=== PATIENT | male | born 1975 | race Caucasian/White ===

== ENCOUNTER 2018-05-04 15:08 | Emergency (ER) | payer SELFPAY ==
[2018-05-04 15:09] VITALS: BP 122/77; PULSE 73; RESP 16; O2SAT 96
[2018-05-04 15:10] VITALS: BP 122/77; PULSE 69; RESP 16; TEMP 36.7; O2SAT 97; BMI 33.7
--- NOTE | 2018-05-04 15:21 | EKG12_ITS ---
Test Reason : PALPS Blood Pressure : / mmHG Vent. Rate : 074 BPM Atrial Rate : 074 BPM P-R Int : 184 ms QRS Dur : 088 ms QT Int : 368 ms P-R-T Axes : 066 026 011 degrees QTc Int : 408 ms Normal sinus rhythm Normal ECG Confirmed by CASSIE DURAND, JOEL ([id number]), material expeditor PATRIA TONY ([id number]) on 05/07/2018 4:37:43 PM Referred By: ED Confirmed By:JOEL MATTHEWS MD
--- NOTE | 2018-05-04 15:21 | CT_ITS ---
STUDY: CT BRAIN WITHOUT CONTRAST REASON FOR EXAM: Male, 43 years old. Altered mental status RADIATION DOSAGE (If Supplied By Facility): CTDIvol = ( 44.99 ) mGy, DLP = ( 829.85 ) mGycm TECHNIQUE: Transaxial CT imaging of the brain was performed without administration of intravenous contrast material. Individualized dose optimization techniques were used for this CT. COMPARISON: None. FINDINGS: No evidence for shift of midline structures, mass effect or compression of ventricles noted. No acute intra-articular extra-axial hemorrhage is seen. No abnormal intracranial fluid collections identified. The basal cisterns are patent. Posterior fossa structures demonstrate no discrete mass. Calvarium is intact. Mucoperiosteal thickening of the maxillary sinuses as well as the sphenoid sinuses and the ethmoid vessels. 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 IMPRESSION: No acute intracranial hemorrhage, mass effect or acute large territory infarcts. Paranasal sinus disease Electronically Signed: Сергей Moe, at 17:15 EST Tel , Service support , CT/Brain/Head without Contrast
--- NOTE | 2018-05-04 15:23 | ED.VISSUMM ---
- ER Visit Summary Date of Service: 05/04/18 Chief Complaint: Anxious, legs feel weak History of Present Illness: The patient is a 43 M who states for the past month he has been having these feelings of anxiousness and legs feeling weak. Got worse today. He states he was making food. He had eaten the food but then had the symptoms come back. Legs are feeling weak and shaky. He had blurred vision. Now his whole body is burning. He states that the burning sensation is now gone but his whole body now hurts. He has no official diagnosis of anxiety. He only takes medications for GERD and stomach problems. Denies any chest pain or shortness of breath. No back pain. Physical Examination: Vital signs reviewed. HEENT exam unremarkable. Heart is regular rate and rhythm without murmurs. Lungs are clear to auscultation. Abdomen is soft and nontender. Extremities reveal no edema. Skin exam normal. Neurologic exam shows 5 out of 5 strength of the arms. 4 out of 5 strength of the legs bilaterally. No slurred speech, facial droop or lateralizing symptoms. Test Results: Laboratory studies normal. EKG normal. CAT scan of the head normal Emergency Department Course and Treatment: I am unclear the etiology of the patient's symptoms. It could be anxiety related. Patient will be discharged to follow-up with his PCP for further testing Treatment Plan: [] Disposition: Discharge Impression: Weakness, anxiety This note was generated with [employer] dictation software. It may contain incorrect words, spelling, and punctuation that were not noted in review of the chart prior to signing ED Disposition - Plan for ED Patient: Chief Complaint: General Illness Referrals: Santhosh Centeno MD [Primary Care Provider] -
[2018-05-04 15:53] LABS: Absolute Lymphocyte Count 1.73 X10^3/ul (0.83-4.51); Absolute Neutrophil Count 3.5 X10^3/uL (2.0-7.7); Basophil# 0.04 X10^3/uL; Basophil% 0.6 % (0-1); Eosinophil# 0.43 X10^3/uL; Eosinophils% 6.6 % (0-5); Hematocrit 43.5 % (40-54); Lymphocyte # 1.73 X10^3/ul (4.0); Lymphocyte % 26.7 % (19-41); Mean Corp Hgb Conc 34.5 g/gl (32-36); Mean Corpuscular Hgb 30.7 pg (27.0-32.0); Mean Platelet Vol. 10.9 fl (6.2-12.0); Monocyte# 0.78 X10^3/uL; Neutrophil % 53.9 % (47-70); POSITIVE COUNT NO; POSITIVE DIFFERENTIAL NO; POSITIVE MORPHOLOGY NO; Platelet Count 154 K/mm3 (150-450); RBC Distribution Width CV 12.6 % (11.6-14.6); RBC Distribution Width SD 40.7 fl (35.1-43.9); Red Blood Count 4.89 M/mm3 (4.6-6.2); White Blood Count 6.5 K/mm3 (4.4-11.0)
[2018-05-04 16:34] LABS: Anion Gap 8 (5-15); BUN 19 mg/dL (7-18); BUN/Creat Ratio 17.4 RATIO (10-20); Calcium,Total 8.7 mg/dL (8.5-10.1); Chloride 107 mmol/L (98-107); Creatinine, Serum 1.09 mg/dL (0.70-1.30); EST Glomerular Filtration Rate 78 mL/min (>60); Est Glom Filt Rate - Afr Amer 95 mL/min (>60); Estimated Creatinine Clearance 108.99 ml/min; Glucose 104 mg/dL (74-106); Potassium 3.7 mmol/L (3.5-5.1); Sodium Level 140 mmol/L (136-145)
--- NOTE | 2018-05-04 17:17 | ED.DEP ---
ED Disposition - Plan for ED Patient: Disposition: Home or Assisted Living Chief Complaint: General Illness Instructions: ED Weakness [facility] Referrals: Santhosh Centeno MD [Primary Care Provider] -
[2018-05-04 17:27] VITALS: BP 143/76; PULSE 71; PULSE 76; RESP 16; RESP 20; O2SAT 96
== END 2018-05-04 17:36 | disposition home or self-care (01) ==
PROVIDERS: Emergency Provider Emergency Medicine; Family Provider Family Medicine; PCP Family Medicine
DX: R53.1 Weakness (principal); F41.9 Anxiety disorder, unspecified; K21.9 Gastro-esophageal reflux disease without esophagitis; Z72.0 Tobacco use
CPT/HCPCS: 70450; 80048; 84484; 85025; 93005; 99285; A4216

== ENCOUNTER 2019-02-07 05:01 | Emergency (ER) | payer OTHER, SELFPAY ==
[2019-02-07 05:03] VITALS: BP 158/85; PULSE 85; RESP 16; TEMP 36; O2SAT 95; BMI 34.4
[2019-02-07] MEDS: dexAMETHasone 10 MG/ML Vial PO.IVFORM (05:22)
[2019-02-07] MEDS: DiphenhydrAMINE 25 MG Capsule PO (05:22)
[2019-02-07] MEDS: Famotidine 20 MG Tablet 40 MG PO (05:22)
--- NOTE | 2019-02-07 05:22 | ED.DCSUM_ITS ---
- ER Visit Summary Date of Service: 02/07/19 Chief Complaint: Sore throat History of Present Illness: The patient is a 43 M who was awoken from sleep today with a sore throat. He states his throat is swollen. He is a smoker. He denies any new exposures other than bed sheets that are different but he notes that they were washed in the usual detergent. No fevers. He is not on any DESIRAE inhibitors. Physical Examination: Afebrile vital signs stable Gen: Well-nourished well-developed Head: Normocephalic atraumatic Eyes: Perrl EOMI ENT: TMs clear no rhinorrhea moist mucous membranes patient's uvula is significantly edematous. There is no stridor. Neck: Supple no lymphadenopathy no JVD nontender CVS: Regular rate rhythm no murmurs normal S1-S2 Respiratory: No distress clear to auscultation bilaterally chest nontender Abdomen: Soft nontender nondistended normal bowel sounds no masses Back: Nontender Extremity: Nontender no edema Skin: Normal color no rash Neuro: alert orientated ?3 CN II-XII intact normal strength sensation Psych: Normal affect normal mood Emergency Department Course and Treatment: Patient received a oral dose of Decadron, Benadryl, Pepcid. I will give a work note. I advised home treatment and he notes understanding. Return if worsening or concerns Impression: 1. Uvulitis This note was generated with [employer] dictation software. It may contain incorrect words, spelling, and punctuation that were not noted in review of the chart prior to signing ED Disposition - Plan for ED Patient: Disposition: Home or Assisted Living Instructions: Uvulitis Referrals: Snathosh Centeno MD [Primary Care Provider] - As Needed Additional Instructions: Benadryl 25 mg every 6 hours for symptoms. Drink plenty of ice cold water today. If difficulty breathing or handling secretions please return. Monitor for swelling of lips tongue or other areas of the face/mouth
[2019-02-07 05:34] VITALS: RESP 17
== END 2019-02-07 05:35 | disposition home or self-care (01) ==
PROVIDERS: Emergency Provider Emergency Medicine; Family Provider Family Medicine; PCP Family Medicine
DX: K12.2 Cellulitis and abscess of mouth (principal); E78.00 Pure hypercholesterolemia, unspecified; Z72.0 Tobacco use
CPT/HCPCS: 99283

== ENCOUNTER 2019-05-13 14:14 | Emergency (ER) | payer OTHER, SELFPAY ==
[2019-05-13 14:15] VITALS: BP 141/78; PULSE 72; RESP 16; TEMP 37.1; O2SAT 97; BMI 34.9
--- NOTE | 2019-05-13 14:32 | RAD_ITS ---
STUDY: X-RAY - LUMBAR SPINE REASON FOR EXAM: Male, 44 years old. LOWER BACK PAIN, FALL SEVERAL DAYS AGO TECHNIQUE: 3 view(s) of the lumbar spine were obtained. COMPARISON: None FINDINGS: Normal lumbar lordosis. There is no substantial scoliosis. There is a normal alignment of the vertebrae. Mild degree of anterior spondylosis at the L2-L3 level. Normal disc space heights. The soft tissue structures are unremarkable. RAD/Lumbar Spine 2 or 3 Views IMPRESSION: Degenerative changes of the spine, as detailed above. Electronically Signed: Baron Tomas, at 15:12 EST , Service support ,
[2019-05-13] MEDS: Ketorolac 60 MG/2 ML Vial IM (14:47)
[2019-05-13] MEDS: morphine 8 MG/ML Syringe IM (14:47)
--- NOTE | 2019-05-13 15:07 | ED.VISSUMM ---
- ER Visit Summary Date of Service: 05/13/19 Chief Complaint: Back pain History of Present Illness: The patient is a [address] Centeno. Patient bonilla 2 days ago he had a near fall down steps. Caught himself. Reports that shortly thereafter he bent to pick something up and had the abrupt onset of low back pain. He describes it as sharp pain is 10 out of 10 with movement or walking. Is 5 out of 10 when he remains still and after ibuprofen. States that it radiates to the right buttock and to the anterior surface of his right leg to the level of his knee. He denies any numbness or weakness. No problems with his bowels or his bladder. No groin numbness. No red flags. Physical Examination: Vitals: Stable. Afebrile. General: A&O x 3. NAD. Cardiovascular exam: Regular rate and rhythm, no murmur, rub or gallop. Respiratory exam: Clear to auscultation bilaterally. No wheezes or stridor. Abdominal exam: Soft, nontender, nondistended, normal bowel sounds. No peritoneal signs. Back: Diffuse moderate tenderness to palpation over the lumbar spine and the paraspinous musculature in the lumbar region. No point tenderness. Negative straight leg bilaterally. 5/5 DF, PF, EHL bilaterally. Decreased in station to light touch in the lateral right thigh in an L4 distribution. He has normal sensation to light touch distally.. Extremity: No clubbing, cyanosis, or edema. Test Results: X-ray shows no acute disease. Emergency Department Course and Treatment: An OARRS report was obtained which was negative. He was given morphine and Toradol here. He is resting comfortably. Treatment Plan: Patient be discharged prescription for naproxen and 10 [place]. Instructed to follow-up Dr. Centeno in 1 week if not improving. Return to the emergency department for any worsening symptoms. Disposition: To home in improved and stable condition. Impression: 1. Low back pain, acute. This note was generated with [employer] dictation software. It may contain incorrect words, spelling, and punctuation that were not noted in review of the chart prior to signing ED Disposition - Plan for ED Patient: Instructions: BACK PAIN w/ SCIATICA Prescriptions: Naproxen [Naprosyn] 500 mg PO BID #14 tablet Hydrocodone Bitart/Apap 5-325 [[place] 5MG-325MG] 1 tablet PO Q4H PRN PRN 2 Days #10 tablet PRN Reason: Pain Prednisone 10 mg PO DAILY #63 tablet Referrals: Santhosh Centeno MD [Primary Care Provider] - 1 Week if not improving
== END 2019-05-13 15:36 | disposition home or self-care (01) ==
PROVIDERS: Emergency Provider Emergency Medicine; PCP Family Medicine
DX: M54.5 Low back pain (principal); W10.9XXA Fall (on) (from) unspecified stairs and steps, initial encounter; F17.210 Nicotine dependence, cigarettes, uncomplicated; Z90.49 Acquired absence of other specified parts of digestive tract
CPT/HCPCS: 72100; 96372; 99282

== ENCOUNTER 2019-08-25 22:16 | Emergency (ER) | payer OTHER, SELFPAY ==
[2019-08-25 22:17] VITALS: BP 152/94; PULSE 87; RESP 21; TEMP 37; O2SAT 97; BMI 35.9
--- NOTE | 2019-08-25 22:21 | EKG12_ITS ---
Test Reason : SOB Blood Pressure : / mmHG Vent. Rate : 081 BPM Atrial Rate : 081 BPM P-R Int : 172 ms QRS Dur : 084 ms QT Int : 356 ms P-R-T Axes : 062 037 041 degrees QTc Int : 413 ms Normal sinus rhythm Normal ECG Confirmed by KELVIN ESPANA ([id number]), dictionary editor LUIS QUEVEDO ([id number]) on 08/28/2019 3:06:44 PM Referred By: YAMLI Confirmed By:KELVIN ESPANA
[2019-08-25 22:33] VITALS: BP 153/87; PULSE 84; RESP 16; TEMP 37; O2SAT 95; O2SAT 96
--- NOTE | 2019-08-25 22:46 | ED.VIS.GEN ---
History of Present Illness Chief Complaint: Shortness of Breath Detail of Chief Complaint: Chest pain, reflux, shortness of breath, sweats Informant: Patient Onset: Weeks - 2 weeks Context: Gradual Onset Timing: Intermittent Current Severity: Mild Maximum Severity: Moderate Narrative: Patient presents with a two-week history of lower chest pain with reflux and shortness of breath. It is intermittent and does not necessarily correlate with change in position or with food. He states he feels very winded with minimal exertion. He denies fever or chills but states he breaks out in sweats. - Past Medical History (1) Hx of cholecystectomy Status: Chronic (2) High cholesterol Status: Chronic Past Medical History - Allergies and Home Meds Allergies/Adverse Reactions: Allergies bee venom protein (honey bee) Allergy (Verified 08/25/19 22:17) Anaphylaxis Primary Care Physician: Santhosh Centeno MD [Primary Care Provider] - Prior records reviewed: Yes Smoking Status: Current every day smoker Review of Systems General: Reports: Sweats. Denies: Chills, Fever Eyes: Denies: Visual changes - bilaterally ENT: Denies: Bilateral ear pain Cardiovascular: Reports: Chest pain Respiratory: Reports: Dyspnea Gastrointestinal: Denies: Nausea, Vomiting Genitourinary: Denies: Dysuria Musculoskeletal: Reports: Back pain. Denies: Extremity Pain Skin: Denies: Rash Neurological: Denies: Headache Hematologic: Denies: Easy bruising, Easy bleeding Allergy: Denies: Uticaria Physical Exam Vital Signs/Narrative: Vital Signs Temp Pulse Resp BP Pulse Ox 08/25/19 22:33 98.6 F 84 16 153/87 H 96 08/25/19 22:17 98.6 F 87 21 H 152/94 H 97 Inital Vital Signs reviewed: Yes General: Well nourished, Well developed Head: Normocephalic ENT: Moist mucous membranes Neck: Supple Cardiovascular: Regular rate, Regular rhythm Respiratory: No distress, CTA bilaterally, Chest tenderness - Reproducible tenderness of the lower sternum. Abdomen: Soft, Nontender, Normal bowel sounds Back: Nontender Extremities: Nontender Skin: Normal color, No rash Neurological: Alert, Oriented x3 Psychological: Normal affect Diagnostic/Tx/Re-eval Impressions Chest X-Ray 08/25/19 23:00 IMPRESSION: Normal x-ray examination of the chest. Electronically Signed: Sean Schumacher MD at 23:27 EDT , Service support , 08/25/19 23:00 Chest 1 View (Portable) [RAD] Stat Laboratory Results 08/25/19 08/25/19 22:50 22:50 WBC 8.0 RBC 4.74 Hgb 14.8 Hct 42.8 MCV 90.3 MCH 31.2 MCHC 34.6 RDW Std Deviation 41.9 RDW Coeff of Aubrey 12.6 Plt Count 183 MPV 11.2 Immature Gran % (Auto) 0.300 Neut % (Auto) 51.8 Lymph % (Auto) 32.2 Treasure % (Auto) 9.1 Eos % (Auto) 6.0 H Baso % (Auto) 0.6 Absolute Neuts (auto) 4.1 Absolute Lymphs (auto) 2.57 Nucleated RBC % 0 Sodium 139 Potassium 4.2 Chloride 109 H Carbon Dioxide 26.0 Anion Gap 4 L BUN 18 Creatinine 1.08 Estim Creat Clear Calc 114.47 Est GFR (MDRD) Af Amer 95 Est GFR (MDRD) Non-Af 78 BUN/Creatinine Ratio 16.7 Glucose 201 H Calcium 9.0 Total Bilirubin 0.50 Direct Bilirubin 0.16 AST 36 ALT 74 H Alkaline Phosphatase 73 Troponin I < 0.015 Total Protein 7.0 Albumin 3.4 Globulin 3.6 Lipase 414 H - EKG Initial EKG Interpretation: Sinus Rhythm - Sinus 81 with no acute ischemia. - Medical Decision Making Patient was given aspirin on arrival here. Laboratory evaluation is unremarkable. Cardiac enzymes are negative. Lipase is at the upper limit of normal. Patient states that since coming to the hospital he has noted more reflux. He will be given a GI cocktail here. Patient states that he is on something [id number] for acid reflux but does not remember the name of it. He will given a prescription for Protonix. Symptoms are not classic for angina, however I do recommend he follow-up with his primary care physician. He was advised to return for worsening symptoms or concerns. ED Disposition - Plan for ED Patient: Disposition: Home or Assisted Living Diagnosis: Atypical chest pain, GERD (gastroesophageal reflux disease) Instructions: ED Chest Pain Atypical Unkn Cause, Gastroesophageal Reflux Disease (GERD) Prescriptions: Pantoprazole Sodium [Protonix] 40 mg PO DAILY #30 tablet Referrals: Santhosh Centeno MD [Primary Care Provider] - 5-7 Days
[2019-08-25] MEDS: Aspirin 81 MG TAB.CHEW 324 MG PO (22:55)
[2019-08-25 22:57] LABS: Absolute Lymphocyte Count 2.57 X10^3/uL (0.83-4.51); Absolute Neutrophil Count 4.1 X10^3/uL (2.0-7.7); Basophil# 0.05 X10^3/uL; Basophil% 0.6 % (0-1); Eosinophil# 0.48 X10^3/uL; Hematocrit 42.8 % (40-54); Hemoglobin 14.8 g/dL (13.0-16.5); Lymphocyte # 2.57 X10^3/ul (4.0); Lymphocyte % 32.2 % (19-41); Mean Corp Hgb Conc 34.6 g/dL (32-36); Mean Corpuscular Hgb 31.2 pg (27.0-32.0); Mean Corpuscular Volume 90.3 fL (80-94); Mean Platelet Vol. 11.2 fl (6.2-12.0); Monocyte# 0.73 X10^3/uL; Monocyte% 9.1 % (0-10); NRBC Flagged by Analyzer 0 % (0-5); Neutrophil # 4.13 X10^3/uL (2.7-7.7); Neutrophil % 51.8 % (47-70); Platelet Count 183 K/mm3 (150-450); RBC Distribution Width CV 12.6 % (11.6-14.6); RBC Distribution Width SD 41.9 fl (35.1-43.9); Red Blood Count 4.74 M/mm3 (4.6-6.2)
--- NOTE | 2019-08-25 23:00 | RAD_ITS ---
STUDY: X-RAY CHEST REASON FOR EXAM: Male, 44 years old. INCREASED SOB, COUGH, AND CHEST DISCOMFORT TECHNIQUE: Single AP portable view of the chest. COMPARISON: Previous study of 03/08/2016 FINDINGS: court recording monitor leads are present. The lungs are clear and expanded. There is no demonstrated pleural abnormality. Normal size heart. Normal mediastinum and shaw. Normal visualized pulmonary arteries. Normal visualized aortic arch and descending thoracic aorta. Normal visualized thoracic spine. Normal visualized ribs, clavicles, and shoulders. There is no demonstrated abnormality of the visualized soft tissue structures of the upper abdomen. RAD/Chest 1 View (Portable) IMPRESSION: Normal x-ray examination of the chest. Electronically Signed: Sean Schumacher MD at 23:27 EDT , Service support ,
[2019-08-25 23:21] VITALS: BP 131/107; PULSE 82; RESP 19; TEMP 36.8; O2SAT 96
[2019-08-25 23:49] LABS: AST(SGOT) 36 U/L (15-37); Alanine Aminotransfer ALT/SGPT 74 U/L (16-61); Albumin, Serum 3.4 g/dL (3.2-5.0); Alkaline Phosphatase 73 U/L (45-117); Anion Gap 4 (5-15); BUN 18 mg/dL (7-18); BUN/Creat Ratio 16.7 RATIO (10-20); Bilirubin, Direct 0.16 mg/dL (0.00-0.30); Chloride 109 mmol/L (98-107); Creatinine, Serum 1.08 mg/dL (0.70-1.30); EST Glomerular Filtration Rate 78 mL/min (>60); Est Glom Filt Rate - Afr Amer 95 mL/min (>60); Estimated Creatinine Clearance 114.47 ml/min; Globulin 3.6 g/dL (2.2-4.2); Glucose 201 mg/dL (74-106); Lipase 414 U/L (73-393); Potassium 4.2 mmol/L (3.5-5.1); Sodium Level 139 mmol/L (136-145)
[2019-08-26] MEDS: Mag Hydrox/Al Hydrox/Simeth 30 ML UDC PO (00:13)
[2019-08-26 00:15] VITALS: BP 124/61; PULSE 86; RESP 17; TEMP 37.1; O2SAT 96
== END 2019-08-26 00:21 | disposition home or self-care (01) ==
LOC: ED 08-26 00:06
PROVIDERS: Emergency Provider Emergency Medicine; PCP Family Medicine
DX: R07.89 Other chest pain (principal); K21.9 Gastro-esophageal reflux disease without esophagitis; E78.00 Pure hypercholesterolemia, unspecified; F17.200 Nicotine dependence, unspecified, uncomplicated; Z90.49 Acquired absence of other specified parts of digestive tract
CPT/HCPCS: 71045; 80048; 80076; 83690; 84484; 85025; 93005; 99285; A4216

== ENCOUNTER → 2019-12-05 17:56 | Outpatient (CLI) | payer OTHER, SELFPAY | PROVIDERS: PCP Family Medicine | DX: Z20.828 Contact with and (suspected) exposure to other viral communicable diseases (principal) | CPT/HCPCS: 87635; 94799; U0003 ==

== ENCOUNTER 2020-02-09 15:02 | Emergency (ER) | payer SELFPAY ==
[2020-02-09 15:06] VITALS: BP 141/80; PULSE 111; RESP 18; TEMP 36.4; O2SAT 97
[2020-02-09 15:30] VITALS: BP 141/80; PULSE 111; RESP 18; TEMP 36.4; O2SAT 97
--- NOTE | 2020-02-09 15:35 | RAD_ITS ---
STUDY: X-RAY CHEST REASON FOR EXAM: Male, 44 years old. C/O H/A, SOB, COUGH, MUSCLES ACHES, LOSS OF TASTE and amp; SMELL TECHNIQUE: Single AP portable view of the chest. COMPARISON: Comparison is made with prior study dated 08/25/2019. FINDINGS: The lungs are clear and expanded. There is no demonstrated pleural abnormality. Normal size heart. Normal mediastinum and shaw. Normal visualized pulmonary arteries. Normal visualized aortic arch and descending thoracic aorta. Normal visualized thoracic spine. Normal visualized ribs, clavicles, and shoulders. There is no demonstrated abnormality of the visualized soft tissue structures of the upper abdomen. RAD/Chest 1 View (Portable) IMPRESSION: Normal x-ray examination of the chest. Electronically Signed: Baron Tomas, at 15:52 EDT , Service support ,
--- NOTE | 2020-02-09 16:07 | ED.VIS.GEN ---
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 He complains of headache shortness of breath cough muscle aches loss of taste and smell. He denies any fever but notes chills. He presents in January 2020 during COVID- pandemic. He denies any diarrhea or vomiting. No rashes. - Past Medical History (1) High cholesterol Status: Chronic (2) Hx of cholecystectomy Status: Chronic Past Medical History - Allergies and Home Meds Allergies/Adverse Reactions: Allergies bee venom protein (honey bee) Allergy (Verified 08/25/19 22:17) Anaphylaxis Primary Care Physician: Santhosh Centeno MD [Primary Care Provider] - Surgical History: cholecystectomy Lives: Spouse/ Significant Other Smoking Status: Current every day smoker Drugs: None Review of Systems General: Reports: Chills, Malaise. Denies: Fever, Sweats Eyes: Denies: Visual changes - bilaterally, Diplopia ENT: Reports: Rhinorrhea, Sore throat Cardiovascular: Denies: Chest pain, Palpitations Respiratory: Reports: Dyspnea, Cough. Denies: Dyspnea on exertion Gastrointestinal: Denies: Abdominal pain, Nausea, Vomiting, Diarrhea, Melena, Hematochezia Genitourinary: Denies: Dysuria, Hematuria, Frequency Musculoskeletal: Reports: Myalgias. Denies: Back pain, Extremity Pain Skin: Denies: Rash, Wounds Neurological: Reports: Headache. Denies: Weakness, Numbness Physical Exam Vital Signs/Narrative: Vital Signs Temp Pulse Resp BP Pulse Ox 02/09/20 15:30 97.6 F L 111 H 18 141/80 H 97 02/09/20 15:06 97.6 F L 111 H 18 141/80 H 97 02/09/20 15:03 97.6 F L 111 H 18 141/80 H 97 Inital Vital Signs reviewed: Yes General: Well nourished, Well developed, No Acute Distress Head: Normocephalic, Atraumatic Eyes: Perrl, EOMI ENT: Moist mucous membranes, No rhinorrhea Neck: Supple, Nontender Cardiovascular: Regular rate, Regular rhythm, No murmurs Respiratory: No distress, CTA bilaterally, Chest nontender Abdomen: Soft, Nontender, Nondistended, Normal bowel sounds Back: Nontender, Normal Inspection Extremities: Nontender, No edema Skin: Normal color, No rash Neurological: Alert, Oriented x3, Cranial nerves II-XII grossly intact, Normal Strength, Normal Sensation Psychological: Normal affect, Normal Mood Diagnostic/Tx/Re-eval - Medical Decision Making Patient clinically appears well. Chest x-ray is negative. Was swabbed for COVID-19. Recommend supportive care with Tylenol Motrin and fluids. Return if worsening or concerns ED Disposition - Plan for ED Patient: Disposition: Home or Assisted Living Diagnosis: Viral syndrome, Suspected COVID-19 virus infection Instructions: ED Viral Syndrome Referrals: Santhosh Centeno MD [Primary Care Provider] - 1 Week if not improving
[2020-02-09 16:16] VITALS: BP 137/69; PULSE 53; RESP 14; O2SAT 98
== END 2020-02-09 16:20 | disposition home or self-care (01) ==
PROVIDERS: Emergency Provider Emergency Medicine; PCP Family Medicine
DX: B34.9 Viral infection, unspecified (principal); F17.200 Nicotine dependence, unspecified, uncomplicated; E78.00 Pure hypercholesterolemia, unspecified; Z90.49 Acquired absence of other specified parts of digestive tract; Z20.828 Contact with and (suspected) exposure to other viral communicable diseases
CPT/HCPCS: 71045; 87635; 99282; U0003

== ENCOUNTER 2021-02-13 19:46 | Emergency (ER) | payer SELFPAY ==
[2021-02-13 19:46] VITALS: BP 139/84; PULSE 86; RESP 18; TEMP 36.9; O2SAT 96; BMI 36.0
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
== END 2021-02-13 22:35 | disposition home or self-care (01) ==
PROVIDERS: Emergency Provider Emergency Medicine; PCP Family Medicine
DX: S39.012A Strain of muscle, fascia and tendon of lower back, initial encounter (principal); F17.210 Nicotine dependence, cigarettes, uncomplicated; E66.9 Obesity, unspecified; V43.62XA Car passenger injured in collision with other type car in traffic accident, initial encounter
CPT/HCPCS: 72100; 99282

== ENCOUNTER 2021-05-08 00:23 | Emergency (ER) | payer SELFPAY ==
[2021-05-08 00:24] VITALS: BP 138/80; PULSE 93; RESP 16; TEMP 37.4; O2SAT 96; BMI 33.7
--- NOTE | 2021-05-08 00:26 | ED.RN ---
DR. HARRIS AT BEDSIDE TO ASSESS. NIH OF 0. PER STEVEN NO STROKE ALERT AT THIS TIME.
[2021-05-08 00:30] LABS: Bedside Glucose 135 mg/dL (70-110)
--- NOTE | 2021-05-08 00:30 | CT_ITS ---
STUDY: CTA NECK WITH CONTRAST REASON FOR EXAM: Male, 46 years old. Posterior headache and dizziness during intercourse RADIATION DOSAGE (If Supplied By Facility): CTDIvol = ( 31.33 ) mGy, DLP = ( 1724.39 ) mGycm TECHNIQUE: CT angiography with multi-detector data acquisition was performed from the aortic arch to the skull base following intravenous administration of IV 100mL Isovue-370. MIP images were reconstructed from the axial data set. Post-processing of the angiographic images was performed, with multiplanar reformation and 3D reconstruction. Individualized dose optimization techniques were used for this CT. COMPARISON: None. FINDINGS: AORTIC ARCH: Normal visualized aortic arch. Normal origins of the brachiocephalic, left common carotid, and left subclavian arteries. RIGHT CAROTID ARTERIES: Normal right common carotid artery (CCA). Normal right common carotid bulb. Normal origin of the right internal carotid (ICA) artery without a hemodynamically significant stenosis. Normal visualized cervical portion of the right internal carotid artery. Normal origin of the right external carotid artery (ECA). LEFT CAROTID ARTERIES: Normal left common carotid artery (CCA). Normal left common carotid bulb. Normal origin of the left internal carotid (ICA) artery without a hemodynamically significant stenosis. Normal visualized cervical portion of the left internal carotid At the vertebral artery confluence, there is a short segment of intraluminal Normal origin of the left external carotid artery (ECA). VERTEBRAL ARTERIES: Normal bilateral vertebral arteries with left-sided dominance. Within the basilar artery just distal to the vertebral artery confluence, there is a short segment intraluminal filling defect. There is an additional short segment intraluminal filling defect in the mid segment of the basilar artery. 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 These findings were conveyed to Dr. HARRIS of the emergency Department at the time of initial review. N.B. : The above Results were Read Back by Jens Dowd MD to Jeannette Harris MD, and understanding confirmed on 05/08/2021 01:11:25 (ET). Electronically Signed: Jens Dowd MD at 1:16 EST Tel , Service support ,
--- NOTE | 2021-05-08 00:31 | EKG12_ITS ---
Test Reason : HEADACHE Blood Pressure : / mmHG Vent. Rate : 093 BPM Atrial Rate : 093 BPM P-R Int : 174 ms QRS Dur : 086 ms QT Int : 350 ms P-R-T Axes : 066 020 013 degrees QTc Int : 435 ms Normal sinus rhythm Normal ECG Confirmed by PIO DURAND, MARLYN ([id number]), senior editor LUIS EMERY ([id number]) on 05/09/2021 10:56:58 AM Referred By: STEVEN Confirmed By:MARLYN SUERO MD
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
[2021-05-08] MEDS: fentaNYL 100 MCG/2 ML Ampul 50 MCG IV (00:55)
[2021-05-08] MEDS: Ondansetron 4 MG/2 ML Vial IV (01:00)
[2021-05-08 01:02] LABS: Absolute Neutrophil Count 4.7 X10^3/uL (2.0-7.7); Basophil# 0.06 X10^3/uL; Basophil% 0.6 % (0-1); Hematocrit 45.1 % (40-54); Hemoglobin 15.6 g/dL (13.0-16.5); Lymphocyte % 38.2 % (19-41); Mean Corp Hgb Conc 34.6 g/dL (32-36); Mean Corpuscular Hgb 30.6 pg (27.0-32.0); Mean Corpuscular Volume 88.6 fL (80-94); Monocyte# 0.86 X10^3/uL; Monocyte% 8.7 % (0-10); NRBC Flagged by Analyzer 0 % (0-5); Neutrophil # 4.69 X10^3/uL (2.7-7.7); Neutrophil % 47.2 % (47-70); Platelet Count 169 K/mm3 (150-450); RBC Distribution Width CV 11.9 % (11.6-14.6); RBC Distribution Width SD 38.5 fl (35.1-43.9); Red Blood Count 5.09 M/mm3 (4.6-6.2); White Blood Count 9.9 K/mm3 (4.4-11.0)
[2021-05-08 01:18] LABS: Anion Gap 6 (5-15); BUN 21 mg/dL (7-18); BUN/Creat Ratio 15.2 RATIO (10-20); CPK Total, Creatine Kinase 202 U/L (39-308); Calcium,Total 9.3 mg/dL (8.5-10.1); Chloride 110 mmol/L (98-107); Creatinine, Serum 1.38 mg/dL (0.70-1.30); EST Glomerular Filtration Rate 59 mL/min (>60); Est Glom Filt Rate - Afr Amer 71 mL/min (>60); Glucose 150 mg/dL (74-106); Potassium 3.9 mmol/L (3.5-5.1); Sodium Level 139 mmol/L (136-145)
[2021-05-08 01:19] VITALS: O2SAT 85
[2021-05-08 01:20] LABS: International Normalized Ratio 0.9; Prothrombin Time (Protime)PT. 11.9 SECONDS (11.7-14.9)
[2021-05-08 01:34] VITALS: BP 142/79; BP 155/80; PULSE 92; PULSE 96; RESP 16; RESP 19; O2SAT 93; O2SAT 96
--- NOTE | 2021-05-08 01:42 | ED.RN ---
[facility] NEUROLOGIST BEAMING INTO ROBOT AT THIS TIME. PER CT SCAN QUESTIONABLE CLOT VS. HEMORRHAGE. PER NEUROLOGIST NO TPA OR BLOOD THINNERS AT THIS TIME. REQUESTED PATIENT BE TRANSFERRED TO [facility] FAMILY REQUESTED THIS RN AND DR. HARRIS TO STEP OUT OF ROOM FOR PRIVACY. PATIENT AND FAMILY HESITANT TO BE TRANSFERRED. REQUESTING TO TALK ABOUT IT WITH EACH OTHER AT THIS TIME. DR. HARRIS EXPLAINED THE IMPORTANCE OF FOLLOWING UP FOR FURTHER EVALUATION. FAMILY STILL REQUESTING SOME TIME TO TALK.
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
[2021-05-08 02:04] VITALS: BP 138/84; PULSE 90; RESP 16; O2SAT 94
--- NOTE | 2021-05-08 02:08 | ED.RN ---
FAMILY AND PATIENT AGREEABLE TO BE TRANSFERRED.
[2021-05-08 02:34] VITALS: BP 137/75; PULSE 87; RESP 16; O2SAT 93
== END 2021-05-08 02:38 | disposition short-term general hospital (02) ==
PROVIDERS: Emergency Provider Emergency Medicine; PCP Family Medicine; Visit Provider Emergency Medicine
DX: I65.1 Occlusion and stenosis of basilar artery (principal); R51.9 Headache, unspecified; F17.210 Nicotine dependence, cigarettes, uncomplicated; Z20.822 Contact with and (suspected) exposure to COVID-19; K21.9 Gastro-esophageal reflux disease without esophagitis; N52.9 Male erectile dysfunction, unspecified
CPT/HCPCS: 70496; 70498; 80048; 82550; 82962; 85025; 85610; 87426; 93005; 96374; 96375; 99285; Q9967; A4216; J2405

== ENCOUNTER 2021-08-06 17:25 | Emergency (ER) | payer SELFPAY ==
[2021-08-06 17:27] VITALS: BP 169/103; PULSE 90; RESP 18; TEMP 36.8; O2SAT 96; BMI 36.6
--- NOTE | 2021-08-06 17:31 | CM.ED ---
RHEA Note RHEA [facility] but patient can not go till tomorrow due to bed availability. Shonna said that they were hoping [facility] had bed but they will not have bed until Sunday. Shonna said that [facility] did not give accepting information yet due to not having bed assignment however, they will provide information in the morning. RHEA updated [facility] La [facility]. Plan: [facility]
[2021-08-06 17:36] VITALS: BMI 36.6
[2021-08-06 17:43] VITALS: BP 161/89; PULSE 80; RESP 19; O2SAT 96
[2021-08-06 18:10] LABS: Bedside Glucose 122 mg/dL (74-106)
--- NOTE | 2021-08-06 18:24 | CT_ITS ---
STUDY: CT BRAIN WITHOUT CONTRAST ENHANCEMENT OF 1847 HOURS ON 08/06/2021 REASON FOR EXAM: 46-year-old male with headache. RADIATION DOSAGE (If Supplied By Facility): CTDIvol = ( 44.99 ) mGy, DLP = ( 863.60 ) mGycm TECHNIQUE: Transaxial CT imaging of the brain was performed without administration of intravenous contrast material. Individualized dose optimization techniques were used for this CT. COMPARISON: 05/08/2021, 05/04/2018. FINDINGS: There are findings of a chronic pansinusitis. Normal calvarium without linear or depressed skull fractures. No subdural, epidural, or intracerebral hematoma, hemorrhage or contusion. No intracranial infarcts or mass lesions. CT/Brain/Head without Contrast IMPRESSION: 1. Findings of chronic pansinusitis. These findings were present to a lesser degree on previous studies. 2. Normal calvarium without linear or depressed skull fractures. 3. No subdural, epidural, or intracerebral hematoma, hemorrhage, or contusion. 4. No intracranial infarcts or mass lesions. 5. No evidence of other intracranial pathology. Electronically Signed: Randy Walls MD at 19:14 EDT ,
[2021-08-06] MEDS: DiphenhydrAMINE 50 MG/ML Syringe 25 MG IV (18:35)
[2021-08-06 18:36] LABS: Absolute Lymphocyte Count 2.24 X10^3/uL (0.83-4.51); Absolute Neutrophil Count 3.7 X10^3/uL (2.0-7.7); Basophil# 0.04 X10^3/uL; Basophil% 0.6 % (0-1); Eosinophil# 0.47 X10^3/uL; Eosinophils% 6.6 % (0-5); Hematocrit 40.8 % (40-54); Hemoglobin 14.6 g/dL (13.0-16.5); Lymphocyte # 2.24 X10^3/ul (0.83-4.51); Lymphocyte % 31.4 % (19-41); Mean Corp Hgb Conc 35.8 g/dL (32-36); Mean Corpuscular Hgb 31.1 pg (27.0-32.0); Monocyte# 0.64 X10^3/uL; NRBC Flagged by Analyzer 0 % (0-5); Neutrophil # 3.73 X10^3/uL (2.7-7.7); Neutrophil % 52.1 % (47-70); Platelet Count 179 K/mm3 (150-450); RBC Distribution Width CV 12.1 % (11.6-14.6); RBC Distribution Width SD 38.5 fl (35.1-43.9); Red Blood Count 4.69 M/mm3 (4.6-6.2); White Blood Count 7.1 K/mm3 (4.4-11.0)
[2021-08-06] MEDS: Metoclopramide 10 MG/2 ML Vial IV (18:36)
[2021-08-06 18:39] VITALS: BP 140/77; PULSE 72; RESP 18; O2SAT 97
[2021-08-06 18:47] LABS: Prothrombin Time (Protime)PT. 12.7 SECONDS (11.7-14.9)
--- NOTE | 2021-08-06 18:47 | EDS_ITS ---
HPI History of Present Illness Chief Complaint: Neuro S/Sx Informant: patient Onset/Context/Timing Onset: Today Context: Sudden Timing: Continuous Location: Occipital, right parietal/temporal/frontal area Worsened by: Nothing Relieved by: Nothing Associated Symptoms/Injury Associated Symptoms: Positive for Visual Changes; Negative for Fever, Nausea, Vomiting, Sore Throat, Sinus Pressure, Numbness, Tingling and Photophobia Injury - JUDD: Negative for Direct Trauma and Fall Narrative Narrative: Presents with headache and black spots in his vision that began again today. Patient states it began rather suddenly. Patient states his headache is sharp. Patient states it started in the occiput and then went to the right parietal and temporal area and then briefly to the frontal area. Patient states that is currently in the occipital area. Patient states it has been constant. Patient states nothing makes it worse and nothing makes it better. Patient states he sees black spots in the lower part of his vision. Patient denies any double vision. Patient denies any fevers or chills. Patient states he had similar symptoms in the past when he was initially diagnosed with intracranial hemorrhage. Patient was transferred to [facility] and had further testing which did not show any intracranial bleeding. Patient has had recent follow-up MRI, MRA, and MRV of his brain which have all been normal. [facility] Medical History Chronic pain Former smoker High cholesterol Pancreatitis Home Medications colestipol [Colestid Tablet] 3 tab PO DAILY 09/21/15 [History Last Taken Unknown] Cholecalciferol (Vitamin D3) [Vitamin D3] 5,000 unit PO DAILY 08/25/19 [History Last Taken Unknown] pantoprazole 40 mg PO DAILY #30 tab 08/26/19 [Rx Last Taken Unknown] etodolac 500 mg PO BID 08/06/21 [History Last Taken Unknown] gabapentin 300 mg PO BID 08/06/21 [History Last Taken Unknown] Allergy/AdvReac Type Severity Reaction Status Date / Time bee venom protein (honey bee) Allergy Anaphylaxis Verified 08/06/21 17:31 Surgical History History of cholecystectomy Hx of cholecystectomy Social History Smoking Status: Current every day smoker tobacco type: cigarettes and smokeless tobacco ROS ROS ED Constitutional Constitutional ED: Denies chills or fever(s) Eyes Eyes: Reports change in vision; Denies diplopia ENT ENT ED: Denies rhinorrhea or sore throat Cardiovascular Cardiovascular: Denies chest pain or palpitations Respiratory/Chest Respiratory/Chest: Denies cough or dyspnea Gastrointestinal Gastrointestinal: Denies nausea or vomiting Genitourinary Genitourinary ED: Denies dysuria or hematuria Musculoskeletal Musculoskeletal: Reports back pain; Denies neck pain Integumentary Denies abscess or rash Neurologic Neurologic: Reports headache(s); Denies weakness Allergic/Immunologic Allergic/Immunologic ED: Denies mouth swelling or urticaria EXAM Physical Exam Const Vital Signs: 08/06/21 17:27 08/06/21 17:43 08/06/21 18:39 Temperature 98.2 F Temperature Source Temporal Pulse Rate 90 80 72 Respiratory Rate 18 19 H 18 Blood Pressure 169/103 H 161/89 H 140/77 H Blood Pressure Mean 125 113 98 Pulse Ox 96 96 97 Oxygen Delivery Method Room Air Room Air Room Air 08/06/21 19:33 08/06/21 20:29 Temperature Temperature Source Pulse Rate 66 63 Respiratory Rate 15 18 Blood Pressure 130/80 H 144/71 H Blood Pressure Mean 96 95 Pulse Ox 94 99 Oxygen Delivery Method Room Air Room Air Positive well nourished, well developed and obese General Appearance ED: well developed and NAD Nutritional Appearance: obese HEENT Reports normocephalic and moist mucous membranes atraumatic Eyes PERRL and EOMs intact bilaterally Eyes Narrative: Funduscopic exam is benign bilaterally. Neck supple and no JVD Resp normal respiratory effort and clear to auscultation bilaterally Cardio regular rate and regular rhythm GI non-tender Palpation: soft Neuro oriented x3, CN's II-XII intact bilaterally and no sensory deficits noted Kami Coma Scale: document GCS findings Spontaneous Obeys Commands Oriented 15 Sensorium / Orientation: awake and alert Speech: speech normal Motor Exam: strength 5/5 throughout Psych mental status grossly normal MDM MDM MDM Narrative Medical decision making narrative: CT scan of the brain was obtained. There is no acute intracranial abnormality. There is chronic pansinusitis. This was interpreted by the radiologist and reviewed by myself. CBC was within normal limits. PT was INR and PTT were within normal limits. Comprehensive metabolic profile was essentially within normal limits. Patient was given Reglan and Benadryl here. Patient is resting comfortably on reevaluation. Patient was advised of his findings. Patient was instructed to follow-up with his neurologist and primary care physician in 5 to 7 days for further evaluation. Patient understood and was agreeable with the plan. All questions were answered. Lab Data Attestation: I reviewed the patient's lab results. Labs: Laboratory Results - last 24 hr 08/06/21 08/06/21 08/06/21 17:40 17:40 17:40 WBC 7.1 RBC 4.69 Hgb 14.6 Hct 40.8 MCV 87.0 MCH 31.1 MCHC 35.8 RDW Std Deviation 38.5 RDW Coeff of Aubrey 12.1 Plt Count 179 MPV 11.0 Immature Gran % (Auto) 0.300 Neut % (Auto) 52.1 Lymph % (Auto) 31.4 [place] % (Auto) 9.0 Eos % (Auto) 6.6 H Baso % (Auto) 0.6 Absolute Neuts (auto) 3.7 Absolute Lymphs (auto) 2.24 Nucleated RBC % 0 PT 12.7 INR 1.0 APTT 28.0 Sodium 141 Potassium 3.8 Chloride 109 H Carbon Dioxide 26.0 Anion Gap 6 BUN 24 H Creatinine 1.05 Estim Creat Clear Calc 112.44 Est GFR (MDRD) Af Amer 97 Est GFR (MDRD) Non-Af 80 BUN/Creatinine Ratio 22.9 H Glucose 139 H Calcium 9.0 Total Bilirubin 0.70 AST 36 ALT 79 H Alkaline Phosphatase 66 Total Protein 7.3 Albumin 3.7 Globulin 3.6 Albumin/Globulin Ratio 1.0 POC Glucose 08/06/21 18:07 WBC RBC Hgb Hct MCV MCH MCHC RDW Std Deviation RDW Coeff of Aubrey Plt Count MPV Immature Gran % (Auto) Neut % (Auto) Lymph % (Auto) [place] % (Auto) Eos % (Auto) Baso % (Auto) Absolute Neuts (auto) Absolute Lymphs (auto) Nucleated RBC % PT INR APTT Sodium Potassium Chloride Carbon Dioxide Anion Gap BUN Creatinine Estim Creat Clear Calc Est GFR (MDRD) Af Amer Est GFR (MDRD) Non-Af BUN/Creatinine Ratio Glucose Calcium Total Bilirubin AST ALT Alkaline Phosphatase Total Protein Albumin Globulin Albumin/Globulin Ratio POC Glucose 122 H Radiography Diagnostic Testing: Clinical Impression(s) from Imaging Studies Brain CT 08/06/21 18:24 IMPRESSION: 1. Findings of chronic pansinusitis. These findings were present to a lesser degree on previous studies. 2. Normal calvarium without linear or depressed skull fractures. 3. No subdural, epidural, or intracerebral hematoma, hemorrhage, or contusion. 4. No intracranial infarcts or mass lesions. 5. No evidence of other intracranial pathology. Electronically Signed: Randy Walls MD at 19:14 EDT , Discharge Plan Triage Chief Complaint: Neuro S/Sx Other Complaint: Headache ED Provider: Cale Almeida Dx/Rx/DC Orders Clinical Impression: Headache Instructions: ED Headache Unspecified Prescriptions: No Action colestipol [Colestid] 1 GM tablet 3 tab PO DAILY RF: 0 Cholecalciferol (Vitamin D3) [Vitamin D3] 5,000 UNIT capsule 5,000 unit PO DAILY RF: 0 pantoprazole 40 MG tablet 40 mg PO DAILY Qty: 30 RF: 0 gabapentin 300 mg capsule 300 mg PO BID RF: 0 etodolac 500 mg tablet 500 mg PO BID RF: 0 Primary Care Provider: Santhosh Centeno Referrals: Santhosh Centeno MD [Primary Care Provider] - 3-5 Days Disposition Disposition: Home, Self Care
[2021-08-06 18:51] LABS: AST(SGOT) 36 U/L (15-37); Alanine Aminotransfer ALT/SGPT 79 U/L (16-61); Albumin, Serum 3.7 g/dL (3.2-5.0); Alkaline Phosphatase 66 U/L (45-117); Anion Gap 6 (5-15); BUN 24 mg/dL (7-18); BUN/Creat Ratio 22.9 RATIO (10-20); Chloride 109 mmol/L (98-107); Creatinine, Serum 1.05 mg/dL (0.70-1.30); EST Glomerular Filtration Rate 80 mL/min (>60); Est Glom Filt Rate - Afr Amer 97 mL/min (>60); Estimated Creatinine Clearance 112.44 ml/min; Globulin 3.6 g/dL (2.2-4.2); Glucose 139 mg/dL (74-106); Potassium 3.8 mmol/L (3.5-5.1); Protein, Total 7.3 g/dL (6.4-8.2); Sodium Level 141 mmol/L (136-145)
[2021-08-06 19:33] VITALS: BP 130/80; PULSE 66; RESP 15; O2SAT 94
[2021-08-06 20:29] VITALS: BP 144/71; PULSE 63; RESP 18; O2SAT 99
[2021-08-06 21:17] VITALS: BP 141/70; PULSE 65; RESP 16; O2SAT 97
== END 2021-08-06 21:21 | disposition home or self-care (01) ==
PROVIDERS: Emergency Provider Emergency Medicine; PCP Family Medicine; Visit Provider Emergency Medicine
DX: R51.9 Headache, unspecified (principal); J32.4 Chronic pansinusitis; F17.220 Nicotine dependence, chewing tobacco, uncomplicated; E78.00 Pure hypercholesterolemia, unspecified; G89.29 Other chronic pain; M54.9 Dorsalgia, unspecified
CPT/HCPCS: 70450; 80053; 82962; 85025; 85610; 85730; 99284; A4216

== ENCOUNTER 2022-02-24 14:10 | Emergency (ER) | payer SELFPAY ==
[2022-02-24 14:11] VITALS: BP 145/85; PULSE 85; RESP 18; TEMP 36.8; O2SAT 97; BMI 33.8
--- NOTE | 2022-02-24 14:27 | CT_ITS ---
STUDY: CT BRAIN WITHOUT CONTRAST REASON FOR EXAM: Male, 46 years old. Fall RADIATION DOSAGE (If Supplied By Facility): CTDIvol = ( 25.92 ) mGy, DLP = ( 607.77 ) mGycm TECHNIQUE: Transaxial CT imaging of the brain was performed without administration of intravenous contrast material. Individualized dose optimization techniques were used for this CT. COMPARISON: Comparison is made with prior study dated 08/06/2021. FINDINGS: Normal soft tissue structures. Normal calvarium. Normal size ventricles and extra-axial spaces for the patient''s age. Normal white matter tracts of the cerebral hemispheres. Normal basal ganglia and thalami. Normal brainstem. Normal cerebellum. There is no intracranial hemorrhage. There are no findings of an acute ischemic infarction. Mucosal thickening of the sphenoid sinus and partial opacification of the ethmoid sinuses bilaterally. CT/Brain/Head without Contrast IMPRESSION: Normal unenhanced CT scan of the brain. Sinusitis. Electronically Signed: Baron Tomas MD at 15:31 EDT ,
--- NOTE | 2022-02-24 14:27 | CT_ITS ---
STUDY: CT CERVICAL SPINE WITHOUT CONTRAST REASON FOR EXAM: Male, 46 years old. Fall RADIATION DOSAGE (If Supplied By Facility): CTDIvol = ( 25.92 ) mGy, DLP = ( 607.77 ) mGycm TECHNIQUE: High resolution transaxial imaging was performed without contrast material. Sagittal and coronal images were reconstructed. Individualized dose optimization techniques were used for this CT. COMPARISON: None FINDINGS: Normal craniovertebral junction. Normal anterior atlantoaxial articulation. Normal odontoid process. Normal cervical lordosis. Normal vertebral bodies and posterior osseous elements. Partial opacification of the right sphenoid sinus. C2-3: Normal endplates. Normal disc height and morphology. Normal central canal and intervertebral neuroforamina. C3-4: Normal endplates. Normal disc height and morphology. Normal central canal and intervertebral neuroforamina. C4-5: Normal endplates. Normal disc height and morphology. Normal central canal and intervertebral neuroforamina. C5-6: Normal endplates. Normal disc height and morphology. Normal central canal and intervertebral neuroforamina. C6-7: Normal endplates. Normal disc height and morphology. Normal central canal and intervertebral neuroforamina. C7-T1: Normal endplates. Normal disc height and morphology. Normal central canal and intervertebral neuroforamina. Normal visualized soft tissue structures. CT/Spine Cervical without Contras IMPRESSION: Normal unenhanced CT examination of the cervical spine. Electronically Signed: Baron Tomas MD at 15:30 EDT ,
--- NOTE | 2022-02-24 14:28 | EX.ED.GENINJ ---
HPI History of Present Illness Chief Complaint: Fall Detail of Chief Complaint: Fall with injury to head, neck, and back Informant: patient and spouse/S.O. Narrative Narrative: Patient presents the emergency department after sustaining a fall of the back of the semi-. Patient states that he was trying to avoid being stung by a bee when he fell backwards out of the back of the semi and struck his head on a parked vehicle hitting the side quarter panel. Apparently there was a large dent in the side of the car. Patient denies loss of consciousness. He did not get up after the fall and his called the EMS. Patient complains of pain in his head and neck. Patient complains of pain in his low back. He denies weakness of the extremities. He denies chest pain or abdominal pain. Patient not on blood thinners. [facility] Medical History Chronic pain Former smoker High cholesterol Pancreatitis Home Medications colestipol 1 gram tablet (Colestid) 3 tab PO DAILY 09/21/15 [History Last Taken Unknown] Cholecalciferol (Vitamin D3) [Vitamin D3] 5,000 unit PO DAILY 08/25/19 [History Last Taken Unknown] pantoprazole 40 mg tablet,delayed release 40 mg PO DAILY #30 tabs 08/26/19 [Rx Last Taken Unknown] etodolac 500 mg tablet 500 mg PO BID 08/06/21 [History Last Taken Unknown] gabapentin 300 mg capsule 300 mg PO BID 08/06/21 [History Last Taken Unknown] cyclobenzaprine 10 mg tablet 10 mg PO TID PRN Muscle Spasm #20 TABLETS 02/24/22 [Rx Last Taken Unknown] hydrocodone-acetaminophen 5-325mg 5mg-325mg 1 tab PO Q4H PRN PRN Pain 2 days #10 TABLETS 02/24/22 [Rx Last Taken Unknown] naproxen 500 mg tablet 500 mg PO BID #14 tabs 02/24/22 [Rx Last Taken Unknown] Allergy/AdvReac Type Severity Reaction Status Date / Time bee venom protein (honey bee) Allergy Anaphylaxis Verified 08/06/21 17:31 Surgical History History of cholecystectomy Hx of cholecystectomy Social History Smoking Status: Current every day smoker tobacco type: cigarettes and smokeless tobacco ROS ROS ED Review of Systems ROS Unobtainable: other Constitutional Constitutional ED: Reports lethargy; Denies chills, fever(s), sweats or weight loss Eyes Eyes: Denies blurry vision, change in vision or diplopia ENT ENT ED: Denies rhinorrhea or sore throat Cardiovascular Cardiovascular: Denies chest pain, orthopnea or racing heartbeat Respiratory/Chest Respiratory/Chest: Denies cough, dyspnea, dyspnea on exertion, orthopnea or sputum Gastrointestinal Gastrointestinal: Denies abdominal pain, diarrhea, nausea or vomiting Genitourinary Genitourinary ED: Denies dysuria, hematuria or urinary frequency Musculoskeletal Musculoskeletal: Reports back pain and neck pain; Denies arthralgias or myalgias Integumentary Denies abscess, Abrasions or rash Neurologic Neurologic: Reports headache(s); Denies weakness Psychiatric Psychiatric: Denies anxiety, depression or suicidal thoughts Endocrine Endocrinology: Denies polydipsia, polyphagia or polyuria Hematologic/Lymphatic Hematologic/Lymphatic: Denies easy bleeding, easy bruising or lymphadenopathy Allergic/Immunologic Allergic/Immunologic ED: Denies mouth swelling, tongue swelling or urticaria EXAM Physical Exam Narrative Exam Narrative: Patient presents via EMS backboarded and c-collar. Const Vital Signs: 02/24/22 14:11 02/24/22 14:16 Temperature 98.2 F Temperature Source Oral Pulse Rate 85 Respiratory Rate 18 Respiratory Effort Normal Respiratory Depth Normal Respiratory Pattern Normal Blood Pressure 145/85 H Blood Pressure Mean 105 Pulse Ox 97 Oxygen Delivery Method Room Air Room Air Positive well nourished and well developed General Appearance ED: well developed and NAD HEENT Reports TM's clear and moist mucous membranes normocephalic and atraumatic; Negative for trauma or tenderness Tympanic Membrane ED: Yes TM's clear Eyes PERRL and EOMs intact bilaterally General Eye ED: Negative for pale conjunctiva or scleral icterus Neck no lymphadenopathy, supple and no JVD Neck Narrative: Patient diffusely with tenderness over the C-spine. No bony step-offs noted no crepitus. General: tenderness Chest Wall inspection of chest normal and palpation of chest normal Chest: Negative for tenderness Resp normal respiratory effort and clear to auscultation bilaterally Effort and Inspection: Negative for respiratory distress or pain with movement Auscultation: Negative for rhonchi, wheezes or diminished lung sounds Cardio regular rate, regular rhythm, S1 normal heart sound, S2 normal heart sound and no murmurs Peripheral Pulses: pulses 2+ throughout GI normal to inspection, nondistended, normoactive bowel sounds, soft to palpation, non-tender, non-distended and no masses Back/Spine no CVA tenderness Back/Spine Narrative: Patient was seen diffuse tenderness over lumbar spine. No bony step-offs noted. Negative straight leg raises. Extremity Extremity Narrative: Abrasions noted to the left forearm without bony tenderness on exam. General Extremety ED: Negative for edema General Extremity: Negative for edema Neuro oriented x3, CN's II-XII intact bilaterally, no sensory deficits noted and gait normal Sensorium / Orientation: awake, alert, oriented to person, oriented to place and oriented to time Motor Exam: strength 5/5 throughout and strength abnormal Psych mental status grossly normal Skin no rashes or lesions noted and no wounds MDM MDM MDM Narrative Medical decision making narrative: Patient was left on backboard and c-collar was left in place. CT scan of the brain on my interpretation looks normal official report from radiology pending. I evaluated CT scan of the C-spine and on my interpretation looks normal official report from radiology pending. Patient will be taken off the backboard for comfort and c-collar will be left in place. X-rays of his lumbar spine and pelvis obtained interpreted by myself no acute fractures. Patient was given 4 mg of morphine and 4 mg of Zofran IM. Patient will be discharged to home with a prescription for Naprosyn, Flexeril, few [place] for pain. Lab Data Labs: Laboratory Results - last 24 hr 02/24/22 14:47 POC Glucose 170 H Radiography Diagnostic Testing: Clinical Impression(s) from Imaging Studies Pelvis X-Ray 02/24/22 14:50 IMPRESSION: Normal x-ray examination of the pelvis. Electronically Signed: Baron Tomas MD at 15:10 EDT , Three-view x-rays lumbar spine obtained interpreted by myself no acute fractures. Radiology was in agreement. 1 view x-ray of the pelvis obtained interpreted by myself no acute fractures. Radiology in agreement. Discharge Plan Triage Chief Complaint: Fall ED Provider: Pranav Blackwell Dx/Rx/DC Orders Clinical Impression: Closed head injury, Concussion, Back contusion, Cervical strain Instructions: ED Concussion, ED Back Contusion, ED Neck Sprain or Strain Prescriptions: New cyclobenzaprine [cyclobenzaprine] 10 mg tablet 10 mg PO TID PRN (Reason: Muscle Spasm) Qty: 20 0RF hydrocodone-acetaminophen [hydrocodone-acetaminophen] 5-325 mg tablet 1 tab PO Q4H PRN PRN (Reason: Pain) 2 Days Qty: 10 0RF naproxen 500 mg tablet 500 mg PO BID Qty: 14 0RF No Action colestipol [Colestid] 1 GM tablet 3 tab PO DAILY Cholecalciferol (Vitamin D3) [Vitamin D3] 5,000 UNIT capsule 5,000 unit PO DAILY pantoprazole 40 MG tablet 40 mg PO DAILY Qty: 30 0RF gabapentin 300 mg capsule 300 mg PO BID Label Comments: TAKE 1 CAPSULE BY MOUTH TWICE DAILY etodolac 500 mg tablet 500 mg PO BID Label Comments: TAKE 1 TABLET BY MOUTH TWICE DAILY Primary Care Provider: Santhosh Centeno Referrals: Santhosh Centeno MD [Primary Care Provider] - 3-5 Days Disposition Disposition: Home, Self Care
[2022-02-24] MEDS: Ondansetron 4 MG/2 ML Vial IM (14:40)
[2022-02-24] MEDS: Morphine 4 MG/ML Syringe IM (14:40)
--- NOTE | 2022-02-24 14:50 | RAD_ITS ---
STUDY: X-RAY - PELVIS REASON FOR EXAM: Male, 46 years old. History of fall. TECHNIQUE: One view of the pelvis was obtained. COMPARISON: None. FINDINGS: There is a non-specific bowel gas pattern. There is a 1.7 cm oblong opacity in the right hemipelvis. This most like represents an ingested pill. Normal bilateral iliac wings, sacroiliac joints and visualized sacrum. Normal visualized bilateral superior and inferior pubic rami. Normal pubic symphysis. Normal ischial tuberosities. Normal visualized right femoral head. Normal right acetabulum. Normal right hip joint. Normal visualized left femoral head. Normal left acetabulum. Normal left hip joint. RAD/Pelvis 1 or 2 Views IMPRESSION: Normal x-ray examination of the pelvis. Electronically Signed: Baron Tomas MD at 15:10 EDT ,
--- NOTE | 2022-02-24 14:50 | RAD_ITS ---
STUDY: X-RAY - LUMBAR SPINE REASON FOR EXAM: Male, 46 years old. Pain following a fall. TECHNIQUE: 3 view(s) of the lumbar spine were obtained. COMPARISON: Comparison is made with prior examination dated 02/13/2001. FINDINGS: Normal lumbar lordosis. There is no substantial scoliosis. There is a normal alignment of the vertebrae. Spondylolysis at the L2-L3 and L4-L5 levels. Mild degree of disc space narrowing at the L4-L5 level. The soft tissue structures are unremarkable. RAD/Lumbar Spine 2 or 3 Views IMPRESSION: Degenerative changes of the spine, as detailed above. Electronically Signed: Baron Tomas MD at 15:14 EDT ,
[2022-02-24 15:06] LABS: Bedside Glucose 170 mg/dL (74-106)
[2022-02-24 15:31] VITALS: BP 145/78; PULSE 86; RESP 16; O2SAT 97
--- NOTE | 2022-02-24 16:21 | ED.RN ---
wheelchair at dc
== END 2022-02-24 16:21 | disposition home or self-care (01) ==
PROVIDERS: Emergency Provider Emergency Medicine; PCP Family Medicine; Visit Provider Emergency Medicine
DX: S06.0X0A Concussion without loss of consciousness, initial encounter (principal); S16.1XXA Strain of muscle, fascia and tendon at neck level, initial encounter; S20.229A Contusion of unspecified back wall of thorax, initial encounter; W19.XXXA Unspecified fall, initial encounter; E78.00 Pure hypercholesterolemia, unspecified; Z87.891 Personal history of nicotine dependence; Z90.49 Acquired absence of other specified parts of digestive tract
CPT/HCPCS: 70450; 72100; 72125; 72170; 82962; 99283; J2405

== ENCOUNTER 2022-07-16 17:40 | Emergency (ER) | payer SELFPAY ==
[2022-07-16 17:41] VITALS: BP 131/85; PULSE 85; RESP 14; TEMP 36.8; O2SAT 97; BMI 33.7
--- NOTE | 2022-07-16 17:55 | EX.ED.DYSGE1 ---
HPI History of Present Illness Chief Complaint: Wound Informant: patient Narrative Narrative: ItsPatient states he has developed a scrotal abscess that started spontaneously yesterday and has gotten worse today. 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 He states he had an orchidopexy remotely for testicular torsion, and developed some cysts at the surgical site in the past, at the skin level, and this has occurred where those used to occur. He is a borderline diabetic, states his blood sugar was last checked couple days ago and it was 179 according to the . He denies any fevers, chills, systemic symptoms. [facility] Medical History Chronic pain Former smoker High cholesterol Pancreatitis Home Medications colestipol 1 gram tablet (Colestid) 3 tab PO DAILY 09/21/15 [History Last Taken Unknown] Cholecalciferol (Vitamin D3) [Vitamin D3] 5,000 unit PO DAILY 08/25/19 [History Last Taken Unknown] pantoprazole 40 mg tablet,delayed release 40 mg PO DAILY #30 tabs 08/26/19 [Rx Last Taken Unknown] etodolac 500 mg tablet 500 mg PO BID 08/06/21 [History Last Taken Unknown] gabapentin 300 mg capsule 300 mg PO BID 08/06/21 [History Last Taken Unknown] cyclobenzaprine 10 mg tablet 10 mg PO TID PRN Muscle Spasm #20 TABLETS 02/24/22 [Rx Last Taken Unknown] hydrocodone-acetaminophen 5-325mg 5mg-325mg 1 tab PO Q4H PRN PRN Pain 2 days #10 TABLETS 02/24/22 [Rx Last Taken Unknown] naproxen 500 mg tablet 500 mg PO BID #14 tabs 02/24/22 [Rx Last Taken Unknown] Allergy/AdvReac Type Severity Reaction Status Date / Time bee venom protein (honey bee) Allergy Anaphylaxis Verified 07/16/22 17:41 Surgical History History of cholecystectomy Hx of cholecystectomy Social History Smoking Status: Current every day smoker tobacco type: cigarettes and smokeless tobacco ROS ROS ED Constitutional Constitutional ED: Denies chills, fever(s) or malaise Genitourinary Genitourinary ED: Reports as per HPI; Denies dysuria or flank pain Integumentary Reports as per HPI and abscess EXAM Physical Exam Const Vital Signs: 07/16/22 17:41 Temperature 98.2 F Temperature Source Temporal Pulse Rate 85 Respiratory Rate 14 Blood Pressure 131/85 H Blood Pressure Mean 100 Pulse Ox 97 Oxygen Delivery Method Room Air Positive well nourished and well developed General Appearance ED: well developed and NAD Narrative: 2 cm pointing skin abscess on the right scrotum. Tender, local erythema, locally indurated. No spontaneous drainage. MDM MDM MDM Narrative Medical decision making narrative: For small abscess that was drained see the procedure note. I do not think this needs antibiotics. Advise warm soapy soaks when he gets home, and change dressings frequently, return if worse. Patient does not have a history of MRSA. Procedures Other Procedures Procedure(s): Simple incision and drainage scrotal abscess: Locally prepped with Betadine swab, then incised with a #11 blade superficially after using local freeze spray for anesthesia. Expressed significant amount of purulent discharge, deloculated bluntly, dressed with bacitracin. Tolerated well no complications. Discharge Plan Triage Chief Complaint: Wound ED Provider: Olvin Moreira Dx/Rx/DC Orders Clinical Impression: Abscess of scrotal wall Instructions: ED Abscess Incision And Drainage Prescriptions: No Action colestipol [Colestid] 1 GM tablet 3 tab PO DAILY Cholecalciferol (Vitamin D3) [Vitamin D3] 5,000 UNIT capsule 5,000 unit PO DAILY pantoprazole 40 MG tablet 40 mg PO DAILY Qty: 30 0RF gabapentin 300 mg capsule 300 mg PO BID Label Comments: TAKE 1 CAPSULE BY MOUTH TWICE DAILY etodolac 500 mg tablet 500 mg PO BID Label Comments: TAKE 1 TABLET BY MOUTH TWICE DAILY cyclobenzaprine [cyclobenzaprine] 10 mg tablet 10 mg PO TID PRN (Reason: Muscle Spasm) Qty: 20 0RF hydrocodone-acetaminophen [hydrocodone-acetaminophen] 5-325 mg tablet 1 tab PO Q4H PRN PRN (Reason: Pain) 2 Days Qty: 10 0RF naproxen 500 mg tablet 500 mg PO BID Qty: 14 0RF Primary Care Provider: Santhosh Centeno: Santhosh Centeno MD [Primary Care Provider] - As Needed (Or ER if recurrent/worse) Disposition Disposition: Home, Self Care
[2022-07-16 18:40] VITALS: BP 138/61; PULSE 84; RESP 16; TEMP 36.6; O2SAT 99
== END 2022-07-16 18:52 | disposition home or self-care (01) ==
PROVIDERS: Emergency Provider Emergency Medicine; PCP Family Medicine; Visit Provider Emergency Medicine
DX: N49.2 Inflammatory disorders of scrotum (principal); E78.00 Pure hypercholesterolemia, unspecified; R73.03 Prediabetes; G89.29 Other chronic pain; Z79.899 Other long term (current) drug therapy; F17.210 Nicotine dependence, cigarettes, uncomplicated
CPT/HCPCS: 55100; 99282

== ENCOUNTER 2024-04-28 04:28 | Emergency (ER) | payer SELFPAY ==
[2024-04-28] VITALS (8 sets, daily range): BP systolic 151–155; BP diastolic 67–98; PULSE 87–97; RESP 16–24; TEMP 36.7–36.9; O2SAT 90–96; BMI 34.0
--- NOTE | 2024-04-28 04:57 | CT_ITS ---
INDICATION: ? Pneumonia EXAMINATION: CT CHEST WITHOUT CONTRAST - CT Chest W/O Contrast Injection TECHNIQUE: Helically acquired images were obtained of the chest. The protocol utilizes one or more of the following dose reduction techniques: automated exposure control, adjustment of mA and/or kV according to patient size,and/or use of iterative reconstruction technique. IV Contrast dosage and agent: None. RADIATION DOSAGE (If Supplied By Facility): CTDIvol = ( 19.71 ) mGy, DLP = ( 837.23 ) mGycm COMPARISON: No relevant prior comparison study available FINDINGS: LUNGS, PLEURA AND LARGE AIRWAYS: The central airways are patent. Right lower lobe consolidation with air bronchograms. Tree-in-bud nodular opacities of the left lower lobe posteriorly. No pleural effusion or thickening. No pneumothorax. THYROID: No thyroid lesions. HEART AND PERICARDIUM: Heart size is normal. No pericardial effusion. CORONARY ARTERIES: Coronary artery calcification is not seen. VESSELS: Thoracic aorta is not dilated. MEDIASTINUM AND PAULINA: No mediastinal or hilar adenopathy. Esophagus is unremarkable. No hiatal hernia. UPPER ABDOMEN: No acute pathology. BONES: No suspicious lytic or blastic abnormality. CT/Chest without Contrast IMPRESSION: Right lower lobe consolidation favoring pneumonia. Follow-up to resolution. [employer] RECOMMENDATIONS FOR FOLLOW-UP OF SMALL SOLID LUNG NODULES DETECTED INCIDENTALLY ON CT (for PATIENTS ? 35 YEARS OF AGE with no known extra-pulmonary cancer and no clinical evidence of infection). Electronically Signed: Ramses Cabrera MD at 6:15 EST ,
[2024-04-28] MEDS: Albuterol 2.5 MG/3 ML VIAL.NEB. INHALATION (05:05)
[2024-04-28] MEDS: Ipratropium/Albuterol Sulfate 3 ML AMPUL.NEB INHALATION ×2 (05:05→06:10)
[2024-04-28] MEDS: 0.9% Normal Saline (1000mL) 1,000 ML 999 ML IV (05:15)
[2024-04-28] MEDS: MethylPREDNISolone 125 MG/2 ML Vial IV (05:15)
[2024-04-28] MEDS: guaiFENesin/Codeine 5 ML UDC 10 ML PO (05:24)
[2024-04-28 05:25] LABS: Absolute Lymphocyte Count 1.54 X10^3/uL (0.83-4.51); Absolute Neutrophil Count 5.1 X10^3/uL (2.0-7.7); Basophil# 0.07 X10^3/uL; Basophil% 0.9 % (0-1); Eosinophil# 0.28 X10^3/uL; Eosinophils% 3.5 % (0-5); Hematocrit 39.8 % (40-54); Hemoglobin 13.9 g/dL (13.0-16.5); Lymphocyte # 1.54 X10^3/ul (0.83-4.51); Lymphocyte % 19.3 % (19-41); Mean Corp Hgb Conc 34.9 g/dL (32-36); Mean Corpuscular Volume 85.8 fL (80-94); Mean Platelet Vol. 10.2 fl (6.2-12.0); Monocyte# 1.01 X10^3/uL; Monocyte% 12.6 % (0-10); NRBC Flagged by Analyzer 0 % (0-5); Neutrophil # 5.07 X10^3/uL (2.7-7.7); Neutrophil % 63.3 % (47-70); Platelet Count 217 K/mm3 (150-450); RBC Distribution Width SD 37.3 fl (35.1-43.9); Red Blood Count 4.64 M/mm3 (4.6-6.2)
[2024-04-28 05:39] LABS: Anion Gap 5 (5-15); BUN 13 mg/dL (7-18); BUN/Creat Ratio 11.7 RATIO (10-20); Calcium,Total 9.3 mg/dL (8.5-10.1); Chloride 108 mmol/L (98-107); Creatinine, Serum 1.11 mg/dL (0.70-1.30); EST Glomerular Filtration Rate 75 mL/min (>60); Est Glom Filt Rate - Afr Amer 90 mL/min (>60); Estimated Creatinine Clearance 122.03 ml/min; Glucose 175 mg/dL (74-106); Magnesium 1.9 mg/dL (1.6-2.6); Potassium 3.7 mmol/L (3.5-5.1); Sodium Level 138 mmol/L (136-145)
[2024-04-28] MEDS: Benzonatate 100 MG Capsule 200 MG PO (06:58)
--- NOTE | 2024-04-28 07:02 | EDS_ITS ---
HPI History of Present Illness Chief Complaint: Cough Informant: patient and spouse/S.O. Narrative Narrative: Patient is a 49-year-old male with past medical history of smoking who states he smoked roughly a pack a day for 30 or so years and now transition to vaping in order to quit smoking. He denies any known history of COPD or emphysema. He states he has had congestion drainage and cough for about 5 to 7 days. He was seen at the urgent care recently and had a negative strep influenza RSV and COVID test. He also reports his chest x-ray did not reveal any sign of pneumonia. Despite the negative workup he feels like his symptoms are worsening and therefore he comes in for evaluation [facility] Medical History Chronic pain Former smoker Pancreatitis High cholesterol Home Medications ?Medication ?Instructions ?Recorded ?Last Taken ?Type etodolac 500 mg tablet 500 mg PO BID 08/06/21 Unknown History cholestyramine (with sugar) 4 gram ea PO DAILY 04/28/24 Unknown History oral powder doxycycline monohydrate 100 mg 100 mg PO BID #20 CAPSULES 04/28/24 Unknown Rx capsule famotidine 20 mg tablet 40 mg PO DAILY 04/28/24 Unknown History prednisone 20 mg tablet 40 mg (2 x 20 mg) PO DAILY 7 days 04/28/24 Unknown Rx #14 tabs Allergy/AdvReac Type Severity Reaction Status Date / Time bee venom protein (honey bee) Allergy Anaphylaxis Verified 07/16/22 17:41 Surgical History History of cholecystectomy Hx of cholecystectomy Social History Smoking Status: Former smoker ROS ROS ED Constitutional Constitutional ED: Reports chills, fever(s) and subjective Eyes Eyes: Denies change in vision ENT ENT ED: Reports rhinorrhea and sore throat Cardiovascular Cardiovascular: Denies chest pain Respiratory/Chest Respiratory/Chest: Reports cough and dyspnea Gastrointestinal Gastrointestinal: Denies abdominal pain, diarrhea, nausea or vomiting Genitourinary Genitourinary ED: Denies dysuria Musculoskeletal Musculoskeletal: Reports myalgias Integumentary Denies rash Neurologic Neurologic: Reports headache(s) Hematologic/Lymphatic Hematologic/Lymphatic: Denies easy bleeding or easy bruising Allergic/Immunologic Allergic/Immunologic ED: Denies mouth swelling or tongue swelling EXAM Physical Exam Const Vital Signs: 04/28/24 04:28 04/28/24 04:28 04/28/24 04:33 Temperature 98.5 F 98.5 F Temperature Source Oral Oral Pulse Rate 97 91 94 Respiratory Rate 20 H 18 21 H Respiratory Effort Respiratory Depth Respiratory Pattern Blood Pressure 151/98 H 151/98 H Blood Pressure Mean 115 115 Pulse Ox 93 93 96 Oxygen Delivery Method Room Air Room Air Room Air 04/28/24 04:43 04/28/24 05:05 04/28/24 06:10 Temperature Temperature Source Pulse Rate 87 89 Respiratory Rate 16 20 H Respiratory Effort Short of Breath Respiratory Depth Normal Respiratory Pattern Normal Blood Pressure Blood Pressure Mean Pulse Ox Oxygen Delivery Method Room Air 04/28/24 06:28 04/28/24 06:59 Temperature 98.0 F Temperature Source Pulse Rate 95 94 Respiratory Rate 24 H 18 Respiratory Effort Respiratory Depth Respiratory Pattern Blood Pressure 155/67 H 155/67 H Blood Pressure Mean 96 96 Pulse Ox 92 90 Oxygen Delivery Method Room Air Positive well nourished, well developed and obese General Appearance ED: well developed; Negative for pallor Nutritional Appearance: obese HEENT HEENT Narrative: No tongue or lip swelling no oral lesions no airway edema or compromise There is cobblestoning noted in the posterior pharynx without secondary findings to suggest infection Eyes PERRL and EOMs intact bilaterally General Eye ED: Negative for scleral icterus Neck supple and no JVD Neck Narrative: No nuchal rigidity or meningeal signs Chest Wall palpation of chest normal Chest Narrative: No bony deformity crepitance or subcutaneous emphysema noted Resp Resp Narrative: Breath sounds are diminished throughout with diffuse inspiratory and expiratory wheezing with rhonchi noted in the right lower lobe Mild tachypnea is noted without retractions stridor or accessory muscle use Cardio regular rate and regular rhythm GI normal to inspection, nondistended, normoactive bowel sounds, non-tender, non- distended and no masses Auscultation: normoactive bowel sounds Palpation: soft Extremity normal to inspection Extremity Narrative: No asymmetric edema no pitting edema negative Homans' sign bilaterally Neuro oriented x3, CN's II-XII intact bilaterally and no sensory deficits noted Sensorium / Orientation: alert Motor Exam: strength 5/5 throughout Psych mental status grossly normal Skin no rashes or lesions noted General Skin Exam: Negative for jaundice or pallor MDM MDM MDM Narrative Medical decision making narrative: Patient arrived to the ER with mild increased work of breathing but satting in the low to mid 90s on room air. His constellation of symptoms are consistent for viral infection such as COVID versus influenza versus RSV. However he states those were tested recently and were negative. With his history of prolonged smoking there is concern for COPD exacerbation brought on by potential infection such as pneumonia. He also could have potential lung cancer based on his prolonged smoking history. Secondary to this basic blood work was obtained and I elected to perform a noncontrast CT scan as he has had a recent x-ray which was negative. There is also concern that the viral swab could have been a false negative so I repeated a COVID influenza and RSV test. Viral swab was negative. Labs show no leukocytosis or left shift. He does not have acute kidn ey injury or severe electrolyte abnormality. There is no acute blood loss anemia. Noncontrast CAT scan did show inflammatory changes in the right lower lobe consistent with pneumonia. The patient was ambulated and his pulse ox was 91 to 94% on room air during his ambulation phase. Therefore at this time he does not meet septic criteria based on vitals or lab. He is not hypoxic with ambulation and therefore does not qualify for admission. As his viral swab was negative patient will be started on antibiotic but as the remainder of the workup reveals no clinically significant findings is otherwise safe for discharge History & Record Review Discussion w/independent historian: Patient and Significant other Lab Data Attestation: I reviewed the patient's lab results. Labs: Laboratory Results - last 24 hr 04/28/24 05:15 WBC 8.0 RBC 4.64 Hgb 13.9 Hct 39.8 L MCV 85.8 MCH 30.0 MCHC 34.9 RDW Std Deviation 37.3 RDW Coeff of Aubrey 12.0 Plt Count 217 MPV 10.2 Immature Gran % (Auto) 0.400 Neut % (Auto) 63.3 Lymph % (Auto) 19.3 [place] % (Auto) 12.6 H Eos % (Auto) 3.5 Baso % (Auto) 0.9 Absolute Neuts (auto) 5.1 Absolute Lymphs (auto) 1.54 Nucleated RBC % 0 Sodium 138 Potassium 3.7 Chloride 108 H Carbon Dioxide 25.0 Anion Gap 5 BUN 13 Creatinine 1.11 Estim Creat Clear Calc 122.03 Est GFR (MDRD) Af Amer 90 Est GFR (MDRD) Non-Af 75 BUN/Creatinine Ratio 11.7 Glucose 175 H Calcium 9.3 Magnesium 1.9 Radiography Diagnostic Testing: Clinical Impression(s) from Imaging Studies Chest CT 04/28/24 04:57 IMPRESSION: Right lower lobe consolidation favoring pneumonia. Follow-up to resolution. [employer] RECOMMENDATIONS FOR FOLLOW-UP OF SMALL SOLID LUNG NODULES DETECTED INCIDENTALLY ON CT (for PATIENTS ? 35 YEARS OF AGE with no known extra-pulmonary cancer and no clinical evidence of infection). Electronically Signed: Ramses Cabrera MD at 6:15 EST Reading Location ID and State: [facility] / [place] Tel , Service support , Discharge Plan Triage Chief Complaint: Cough ED Provider: [place] Hern[facility]dez Dx/Rx/DC Orders Clinical Impression: Pneumonia, Hyperlipidemia, Wheeze, Former smoker Instructions: ED Pneumonia (Adult) Prescriptions: New doxycycline monohydrate 100 mg capsule 100 mg PO BID Qty: 20 0RF prednisone 20 mg tablet 40 mg PO DAILY 7 Days Qty: 14 0RF No Action etodolac 500 mg tablet 500 mg PO BID Patient Comments: TAKE 1 TABLET BY MOUTH TWICE DAILY famotidine 20 mg tablet 40 mg PO DAILY cholestyramine (with sugar) 4 gram powder PO DAILY Stand Alone Forms: ED Work / School Excuse Primary Care Provider: Santhosh Centeno Referrals: Santhosh Centeno MD [Primary Care Provider] - Activity Restrictions/Additional Instructions: Your CT scan showed pneumonia in your right lower lung. Take the doxycycline as directed to help resolve the infection. Continue with the albuterol inhaler and steroids to reduce inflammation and help with breathing. It should take on average 48 to 72 hours to notice improvement. If you have worsening symptoms despite taking your medications or any further concerns please return to the hospital for repeat evaluation Print Language: Azeri Disposition Disposition: Home, Self Care Discharge Date/Time: 04/28/24 07:14
[2024-04-28] MEDS: Doxycycline 100 MG CAPSULE PO (07:09)
[2024-04-28] MEDS: Albuterol Sulfate 8 gm Inhaler (60 puffs) 2 PUFF INHALATION (07:09)
== END 2024-04-28 07:14 | disposition home or self-care (01) ==
PROVIDERS: Emergency Provider Emergency Medicine; PCP Family Medicine; Visit Provider Emergency Medicine
DX: J18.9 Pneumonia, unspecified organism (principal); E78.00 Pure hypercholesterolemia, unspecified; Z87.891 Personal history of nicotine dependence; Z79.899 Other long term (current) drug therapy; R51.9 Headache, unspecified; E66.9 Obesity, unspecified; R06.2 Wheezing
CPT/HCPCS: 71250; 80048; 83735; 85025; 87631; 94640; 96361; 96374; 99283; A4216